=== PATIENT | male | born 1970 | race Asian ===

== ENCOUNTER 2016-07-25 09:52 | Inpatient (IN) | payer MEDICAID, OTHER ==
[~2016-07-25] VITALS: Ht 165.1 cm; Wt 75.3 kg
[~2016-07-25 09:52] MED LIST: DIVA500T35 PO; OLAN10TA3 PO
[2016-07-25 10:15] LABS: BASOPHILS % (AUTO) 0.5 % (0.0-2.0); EOSINOPHILS % (AUTO) 2.1 % (1.0-6.0); HEMOGLOBIN 15.6 g/dL (13.5-17.5); LYMPHOCYTES # (AUTO) 1.3 K/uL (1.0-4.8); MEAN CORPUSCULAR HEMOGLOBIN 30.1 pg (26.0-34.0); MEAN CORPUSCULAR HGB CONC 32.5 G/dL (31.0-37.0); MEAN CORPUSCULAR VOLUME 93 fL (80-100); MONOCYTES # (AUTO) 0.3 K/uL (0.1-1.0); MONOCYTES % (AUTO) 4.6 % (2.0-9.0); NEUTROPHILS % (AUTO) 70.8 % (40.0-70.0); PLATELET COUNT (AUTO) 262 K/uL (150-450); RED BLOOD CELL COUNT(AUTO) 5.18 MIL/uL (4.50-5.90); RED CELL DISTRIBUTION WIDTH 12.7 % (11.5-14.5); WHITE BLOOD COUNT (AUTO) 5.7 K/uL (4.5-11.0)
[2016-07-25 10:42] LABS: ANION GAP 7 mmol/L (8-16); CARBON DIOXIDE 29 mmol/L (22-29); CHLORIDE 102 mmol/L (98-107); CREATININE 0.79 mg/dL (0.60-1.30); GLOMERULAR FILTR. RATE CALC > 60 mL/min (>60); POTASSIUM 3.7 mmol/L (3.5-5.1); SODIUM SERUM 138 mmol/L (136-145); UREA NITROGEN, BLOOD 7 mg/dL (7-18)
[2016-07-25 10:49] LABS: ALANINE AMINOTRANSFERASE 25 U/L (12-78); ALBUMIN 4.1 g/dL (3.4-5.0); ASPARTATE AMINOTRANSFERASE 16 U/L (15-37); BILIRUBIN,TOTAL 0.9 mg/dL (0.1-1.0); TOTAL PROTEIN, SERUM 8.2 g/dL (6.4-8.2)
[2016-07-25 11:06] LABS: VALPROIC ACID < 3 mcg/mL (50-100)
[2016-07-25 13:07] VITALS: BP 139/82
[2016-07-25] MEDS ORDERED: LORazepam 2 MG TABLET PO PRN (13:15)
[2016-07-25] MEDS ORDERED: ZOLPIDEM TARTRATE 10 MG TABLET PO PRN (13:15)
[2016-07-25 14:37] LABS: GLUCOSE,POINT OF CARE 104 MG/DL (70-110)
[2016-07-25 16:26] VITALS: BP 144/87
[2016-07-25] MEDS: HALOPERIDOL 5 MG TABLET PO PRN (21:04)
[2016-07-26 03:08] VITALS: BP 130/73
[2016-07-26 08:22] VITALS: BP 131/76
[2016-07-26] MEDS ORDERED: ONDANSETRON HCL 4 MG TABLET PO PRN (08:30)
[2016-07-26] MEDS ORDERED: ALBUTEROL SULFATE HFA 90 MCG/PUFF 8 GM INHALER IH PRN (08:30)
[2016-07-26] MEDS ORDERED: ACETAMINOPHEN 325 MG TABLET PO PRN (08:30)
[2016-07-26] MEDS ORDERED: BENZOCAINE/MENTHOL LOZENGE MM PRN (08:30)
[2016-07-26] MEDS ORDERED: IBUPROFEN 600 MG TABLET PO PRN (08:30)
[2016-07-26] MEDS ORDERED: PETROLATUM,WHITE 71 GM JELLY TP PRN (08:30)
[2016-07-26] MEDS ORDERED: LOPERAMIDE HCL 2 MG CAPSULE PO PRN (08:30)
[2016-07-26] MEDS ORDERED: CloNIDine HCL 0.1 MG TABLET PO PRN (08:30)
[2016-07-26] MEDS ORDERED: MAG HYDROX/AL HYDROX/SIMETH ES 30 ML SUSPENSION UDCUP PO PRN (08:30)
[2016-07-26] MEDS ORDERED: MAGNESIUM HYDROXIDE SUSPENSION 30 ML UDCUP PO PRN (08:30)
[2016-07-26] MEDS ORDERED: BACITRACIN 28.4 GM OINTMENT TP PRN (08:30)
[2016-07-26 09:50] LABS: CHOL/HDL RATIO 4.9 (4.2-7.3)
[2016-07-26 16:01] VITALS: BP 135/88
[2016-07-26] MEDS: DIVALPROEX SODIUM 500 MG DR TABLET PO SCH (20:48)
[2016-07-26] MEDS: OLANZapine 10 MG TABLET PO SCH (20:48)
[2016-07-26] MEDS: HALOPERIDOL 5 MG TABLET PO PRN (20:49)
[2016-07-27 07:39] VITALS: BP 128/75
[2016-07-27 08:03] VITALS: BP 129/83
[2016-07-27 16:00] VITALS: BP 132/76
[2016-07-27] MEDS: HALOPERIDOL 5 MG TABLET PO PRN (17:14)
[2016-07-27] MEDS: OLANZapine 10 MG TABLET PO SCH (21:00)
[2016-07-27] MEDS: DIVALPROEX SODIUM 500 MG DR TABLET PO SCH (21:00)
[2016-07-28 03:36] VITALS: BP 106/68
[2016-07-28 16:13] VITALS: BP 132/80
[2016-07-28] MEDS: OLANZapine 10 MG TABLET PO SCH (21:00)
[2016-07-28] MEDS: DIVALPROEX SODIUM 500 MG DR TABLET PO SCH (21:00)
[2016-07-29 16:32] VITALS: BP 120/83
[2016-07-29] MEDS: OLANZapine 10 MG TABLET PO SCH (21:00)
[2016-07-29] MEDS: DIVALPROEX SODIUM 500 MG DR TABLET PO SCH (21:00)
[2016-07-30 03:20] VITALS: BP 100/65
[2016-07-30 16:02] VITALS: BP 131/88
[2016-07-30] MEDS ORDERED: HALO5 PO (19:51)
== END 2016-07-30 20:55 | disposition home or self-care (01) | DRG 750 ==
LOC: EMS 09:54 → B2S 11:29
PROVIDERS: ADMIT Psychiatry & Neurology Psychiatry; ATTEND Psychiatry & Neurology Psychiatry
DX: F25.9 Schizoaffective disorder, unspecified (principal); R45.851 Suicidal ideations; I10 Essential (primary) hypertension; F17.210 Nicotine dependence, cigarettes, uncomplicated; Z72.89 Other problems related to lifestyle; Z71.41 Alcohol abuse counseling and surveillance of alcoholic; Z88.0 Allergy status to penicillin; Z79.899 Other long term (current) drug therapy; Z71.6 Tobacco abuse counseling
CPT/HCPCS: 82962; 99285; G0480

== ENCOUNTER 2020-01-21 14:02 | Emergency (ER) | payer MEDICAID, OTHER ==
[~2020-01-21] VITALS: Ht 160 cm; Wt 74.9 kg
[~2020-01-21 14:02] MED LIST changes: +DIVA-112 PO; -DIVA500T35 PO
[2020-01-21 15:44] LABS: BASOPHILS % (AUTO) 0.6 % (0.0-2.0); EOSINOPHILS % (AUTO) 0.7 % (1.0-6.0); HEMATOCRIT 39.9 % (41-53); HEMOGLOBIN 13.8 g/dL (13.5-17.5); LYMPHOCYTES # (AUTO) 1.1 K/uL (1.0-4.8); LYMPHOCYTES % (AUTO) 16.9 % (22.0-44.0); MEAN CORPUSCULAR HEMOGLOBIN 31.9 pg (26.0-34.0); MEAN CORPUSCULAR HGB CONC 34.5 G/dL (31.0-37.0); MEAN CORPUSCULAR VOLUME 93 fL (80-100); MONOCYTES # (AUTO) 0.4 K/uL (0.1-1.0); MONOCYTES % (AUTO) 5.2 % (2.0-9.0); NEUTROPHILS # (AUTO) 5.2 K/uL (1.8-7.7); NEUTROPHILS % (AUTO) 76.6 % (40.0-70.0); PLATELET COUNT (AUTO) 271 K/uL (150-450); RED BLOOD CELL COUNT(AUTO) 4.31 MIL/uL (4.50-5.90); RED CELL DISTRIBUTION WIDTH 12.9 % (11.5-14.5)
[2020-01-21 15:57] LABS: ANION GAP 10 mmol/L (8-16); CALCIUM, TOTAL 9.4 mg/dL (8.8-10.5); CARBON DIOXIDE 26 mmol/L (22-29); CHLORIDE 101 mmol/L (98-107); CREATININE 0.83 mg/dL (0.60-1.30); GLOMERULAR FILTR. RATE CALC > 60 mL/min (>60); GLUCOSE,RANDOM 89 mg/dL (70-110); POTASSIUM 3.6 mmol/L (3.5-5.1); SODIUM SERUM 137 mmol/L (136-145); UREA NITROGEN, BLOOD 9 mg/dL (7-18)
[2020-01-21 16:18] LABS: ALANINE AMINOTRANSFERASE 30 U/L (12-78); ALBUMIN 4.3 g/dL (3.4-5.0); ALKALINE PHOSPHATASE 51 U/L (46-116); ASPARTATE AMINOTRANSFERASE 17 U/L (15-37); BILIRUBIN,TOTAL 0.9 mg/dL (0.1-1.0); TOTAL PROTEIN, SERUM 8.5 g/dL (6.4-8.2)
[2020-01-21 17:06] LABS: COVID AG,FIA SOURCE NASOPHARYNGEAL
[2020-01-21] MEDS ORDERED: OLANZapine 5 MG TABLET PO ONE (17:30)
[2020-01-21 20:16] VITALS: BP 140/80
== END 2020-01-21 20:17 | disposition home or self-care (01) ==
LOC: EMS 14:09
DX: F20.9 Schizophrenia, unspecified (principal); I11.9 Hypertensive heart disease without heart failure; F17.210 Nicotine dependence, cigarettes, uncomplicated; Z20.828 Contact with and (suspected) exposure to other viral communicable diseases; Z88.0 Allergy status to penicillin
CPT/HCPCS: 36415; 80053; 85025; 87426; 99285; G0480

== ENCOUNTER 2020-06-18 15:43 | Emergency (ER) | payer OTHER ==
[~2020-06-18] VITALS: Ht 167.6 cm; Wt 81.8 kg
[2020-06-18] MEDS ORDERED: ACETAMINOPHEN 325 MG TABLET PO ONE (16:45)
[2020-06-18 17:06] LABS: BASOPHILS % (AUTO) 0.7 % (0.0-2.0); EOSINOPHILS % (AUTO) 1.3 % (1.0-6.0); HEMATOCRIT 42.6 % (41-53); HEMOGLOBIN 14.4 g/dL (13.5-17.5); LYMPHOCYTES # (AUTO) 1.5 K/uL (1.0-4.8); MEAN CORPUSCULAR HEMOGLOBIN 29.7 pg (26.0-34.0); MEAN CORPUSCULAR HGB CONC 33.8 G/dL (31.0-37.0); MEAN CORPUSCULAR VOLUME 88 fL (80-100); MONOCYTES # (AUTO) 0.5 K/uL (0.1-1.0); MONOCYTES % (AUTO) 5.4 % (2.0-9.0); NEUTROPHILS # (AUTO) 6.3 K/uL (1.8-7.7); NEUTROPHILS % (AUTO) 74.6 % (40.0-70.0); PLATELET COUNT (AUTO) 304 K/uL (150-450); RED BLOOD CELL COUNT(AUTO) 4.83 MIL/uL (4.50-5.90); RED CELL DISTRIBUTION WIDTH 12.7 % (11.5-14.5)
[2020-06-18 17:25] LABS: ANION GAP 14 mmol/L (8-16); CALCIUM, TOTAL 9.1 mg/dL (8.8-10.5); CARBON DIOXIDE 25 mmol/L (22-29); CHLORIDE 103 mmol/L (98-107); GLOMERULAR FILTR. RATE CALC > 60 mL/min (>60); GLUCOSE,RANDOM 112 mg/dL (70-110); POTASSIUM 3.7 mmol/L (3.5-5.1); SODIUM SERUM 142 mmol/L (136-145); UREA NITROGEN, BLOOD 12 mg/dL (7-18)
[2020-06-18 17:30] LABS: ALANINE AMINOTRANSFERASE 20 U/L (12-78); ALBUMIN 4.1 g/dL (3.4-5.0); ALKALINE PHOSPHATASE 65 U/L (46-116); ASPARTATE AMINOTRANSFERASE 14 U/L (15-37); BILIRUBIN,TOTAL 0.6 mg/dL (0.1-1.0); TOTAL PROTEIN, SERUM 8.2 g/dL (6.4-8.2)
[2020-06-18] MEDS ORDERED: OLANZapine 5 MG TABLET PO ONE (21:15)
[2020-06-18] MEDS ORDERED: LORazepam 1 MG TABLET PO ONE (21:15)
[2020-06-18 21:30] VITALS: BP 125/75
== END 2020-06-18 21:45 | disposition home or self-care (01) ==
LOC: EMS 15:46
DX: R51.9 Headache, unspecified (principal); F25.9 Schizoaffective disorder, unspecified; I11.9 Hypertensive heart disease without heart failure; F17.210 Nicotine dependence, cigarettes, uncomplicated; Z88.0 Allergy status to penicillin
CPT/HCPCS: 80053; 80164; 85025; 99284; G0480

== ENCOUNTER 2020-06-29 11:06 | Inpatient (IN) | payer MEDICAID, OTHER ==
[~2020-06-29] VITALS: Ht 167.6 cm; Wt 76.7 kg
[2020-06-29 12:55] LABS: BASOPHILS % (AUTO) 0.7 % (0.0-2.0); EOSINOPHILS % (AUTO) 1.1 % (1.0-6.0); HEMATOCRIT 43.5 % (41-53); HEMOGLOBIN 14.7 g/dL (13.5-17.5); LYMPHOCYTES # (AUTO) 1.4 K/uL (1.0-4.8); MEAN CORPUSCULAR HEMOGLOBIN 30.1 pg (26.0-34.0); MEAN CORPUSCULAR HGB CONC 33.8 G/dL (31.0-37.0); MEAN CORPUSCULAR VOLUME 89 fL (80-100); MONOCYTES # (AUTO) 0.4 K/uL (0.1-1.0); MONOCYTES % (AUTO) 5.5 % (2.0-9.0); NEUTROPHILS # (AUTO) 5.9 K/uL (1.8-7.7); NEUTROPHILS % (AUTO) 74.7 % (40.0-70.0); PLATELET COUNT (AUTO) 281 K/uL (150-450); RED BLOOD CELL COUNT(AUTO) 4.89 MIL/uL (4.50-5.90); RED CELL DISTRIBUTION WIDTH 13.2 % (11.5-14.5)
[2020-06-29 13:07] LABS: ANION GAP 10 mmol/L (8-16); CALCIUM, TOTAL 9.3 mg/dL (8.8-10.5); CARBON DIOXIDE 27 mmol/L (22-29); CHLORIDE 103 mmol/L (98-107); CREATININE 0.83 mg/dL (0.60-1.30); GLOMERULAR FILTR. RATE CALC > 60 mL/min (>60); GLUCOSE,RANDOM 91 mg/dL (70-110); POTASSIUM 3.9 mmol/L (3.5-5.1); SODIUM SERUM 140 mmol/L (136-145); UREA NITROGEN, BLOOD 10 mg/dL (7-18)
[2020-06-29 13:15] LABS: ALANINE AMINOTRANSFERASE 24 U/L (12-78); ALBUMIN 4.2 g/dL (3.4-5.0); ALKALINE PHOSPHATASE 66 U/L (46-116); ASPARTATE AMINOTRANSFERASE 13 U/L (15-37); BILIRUBIN,TOTAL 0.8 mg/dL (0.1-1.0); TOTAL PROTEIN, SERUM 8.3 g/dL (6.4-8.2)
[2020-06-29 13:27] LABS: VALPROIC ACID < 3 mcg/mL (50-100)
[2020-06-29 15:58] LABS: COVID AG,FIA SOURCE NASOPHARYNGEAL
[2020-06-29] MEDS ORDERED: PNEUMOCOCCAL VACCINE POLYVALENT 0.5 ML VIAL [PPSV23] IM. ONE (19:30)
[2020-06-29 20:13] VITALS: BP 134/82
[2020-06-29] MEDS: LORazepam 2 MG TABLET PO PRN (21:54)
[2020-06-30 00:04] VITALS: BP 116/65
[2020-06-30 08:10] VITALS: BP 126/74
[2020-06-30] MEDS: CITALOPRAM HYDROBROMIDE 20 MG TABLET PO SCH (08:20)
[2020-06-30] MEDS ORDERED: LOPERAMIDE HCL 2 MG CAPSULE PO PRN (09:45)
[2020-06-30] MEDS ORDERED: MAGNESIUM HYDROXIDE SUSPENSION 30 ML UDCUP PO PRN (09:45)
[2020-06-30] MEDS ORDERED: ONDANSETRON HCL 4 MG TABLET PO PRN (09:45)
[2020-06-30] MEDS ORDERED: DOCUSATE SODIUM 100 MG CAPSULE PO PRN (09:45)
[2020-06-30] MEDS ORDERED: MAG HYDROX/AL HYDROX/SIMETH ES 30 ML SUSPENSION UDCUP PO PRN (09:45)
[2020-06-30] MEDS ORDERED: PETROLATUM,WHITE 28 GM JELLY TP PRN (09:45)
[2020-06-30] MEDS ORDERED: ALBUTEROL SULFATE HFA 90 MCG/PUFF 8 GM INHALER IH PRN (09:45)
[2020-06-30] MEDS ORDERED: BACITRACIN 28 GM OINTMENT TP PRN (09:45)
[2020-06-30] MEDS ORDERED: CloNIDine HCL 0.1 MG TABLET PO PRN (09:45)
[2020-06-30] MEDS ORDERED: OMEPRAZOLE 20 MG CAPSULE PO PRN (09:45)
[2020-06-30] MEDS ORDERED: IBUPROFEN 600 MG TABLET PO PRN (09:45)
[2020-06-30] MEDS ORDERED: BENZOCAINE/MENTHOL LOZENGE PO PRN (09:45)
[2020-06-30 16:31] VITALS: BP 116/69
[2020-06-30] MEDS: OLANZapine 10 MG TABLET PO SCH (20:33)
[2020-07-01] VITALS: BP 117/71
[2020-07-01 08:10] VITALS: BP 132/80
[2020-07-01] MEDS: CITALOPRAM HYDROBROMIDE 20 MG TABLET PO SCH (09:02)
[2020-07-01 16:26] VITALS: BP 131/77
[2020-07-01] MEDS: LORazepam 2 MG TABLET PO PRN (16:32)
[2020-07-01] MEDS: OLANZapine 10 MG TABLET PO SCH (20:29)
[2020-07-01] MEDS: ZOLPIDEM TARTRATE 10 MG TABLET PO PRN (22:54)
[2020-07-01 23:58] VITALS: BP 122/60
[2020-07-02 06:38] VITALS: BP 124/77
[2020-07-02 08:24] VITALS: BP 130/85
[2020-07-02] MEDS: CITALOPRAM HYDROBROMIDE 20 MG TABLET PO SCH (08:28)
[2020-07-02 16:07] VITALS: BP 118/79
[2020-07-02] MEDS: ACETAMINOPHEN 325 MG TABLET PO PRN (16:15)
[2020-07-02] MEDS: OLANZapine 10 MG TABLET PO SCH (20:30)
[2020-07-03 00:54] VITALS: BP 114/75
[2020-07-03] MEDS: CITALOPRAM HYDROBROMIDE 20 MG TABLET PO SCH (08:29)
[2020-07-03 08:42] VITALS: BP 118/71
[2020-07-03 16:12] VITALS: BP 139/81
[2020-07-03] MEDS: ACETAMINOPHEN 325 MG TABLET PO PRN (17:52)
[2020-07-03] MEDS: OLANZapine 10 MG TABLET PO SCH (21:41)
[2020-07-04 06:19] VITALS: BP 104/62
[2020-07-04 07:02] LABS: COVID AG,FIA SOURCE NASOPHARYNGEAL
[2020-07-04 08:18] VITALS: BP 135/79
[2020-07-04] MEDS: CITALOPRAM HYDROBROMIDE 20 MG TABLET PO SCH (08:38)
[2020-07-04] MEDS: LORazepam 2 MG TABLET PO PRN (09:13)
[2020-07-04 16:11] VITALS: BP 130/80
[2020-07-04] MEDS: OLANZapine 10 MG TABLET PO SCH (20:40)
[2020-07-05 00:28] VITALS: BP 139/77
[2020-07-05] MEDS: CITALOPRAM HYDROBROMIDE 20 MG TABLET PO SCH (08:15)
[2020-07-05 08:42] VITALS: BP 125/76
[2020-07-05 16:12] VITALS: BP 118/69
[2020-07-05] MEDS: OLANZapine 10 MG TABLET PO SCH (20:56)
[2020-07-06 00:44] VITALS: BP 113/78
[2020-07-06 08:04] VITALS: BP 134/83
[2020-07-06] MEDS: CITALOPRAM HYDROBROMIDE 20 MG TABLET PO SCH (08:29)
[2020-07-06] MEDS: MULTIVITAMINS WITH MINERALS, THERAPEUTIC TABLET PO SCH (12:20)
[2020-07-06 16:09] VITALS: BP 128/77
[2020-07-06] MEDS: ACETAMINOPHEN 325 MG TABLET PO PRN (18:15)
[2020-07-06] MEDS: OLANZapine 10 MG TABLET PO SCH (20:20)
[2020-07-07 00:03] VITALS: BP 122/81
[2020-07-07 08:07] VITALS: BP 124/79
[2020-07-07] MEDS: CITALOPRAM HYDROBROMIDE 20 MG TABLET PO SCH (08:49)
[2020-07-07] MEDS: MULTIVITAMINS WITH MINERALS, THERAPEUTIC TABLET PO SCH (08:49)
[2020-07-07 16:13] VITALS: BP 131/63
[2020-07-07] MEDS: OLANZapine 10 MG TABLET PO SCH (20:07)
[2020-07-08 04:54] VITALS: BP 119/74
[2020-07-08 08:25] VITALS: BP 122/65
[2020-07-08] MEDS: CITALOPRAM HYDROBROMIDE 20 MG TABLET PO SCH (08:48)
[2020-07-08] MEDS: MULTIVITAMINS WITH MINERALS, THERAPEUTIC TABLET PO SCH (08:48)
[2020-07-08 16:08] VITALS: BP 115/56
[2020-07-08] MEDS: OLANZapine 10 MG TABLET PO SCH (20:19)
[2020-07-09 05:34] VITALS: BP 110/64
[2020-07-09 08:00] VITALS: BP 146/74
[2020-07-09] MEDS: CITALOPRAM HYDROBROMIDE 20 MG TABLET PO SCH (08:04)
[2020-07-09] MEDS: MULTIVITAMINS WITH MINERALS, THERAPEUTIC TABLET PO SCH (08:04)
[2020-07-09 16:14] VITALS: BP 144/92
[2020-07-09 19:12] VITALS: BP 135/86
[2020-07-09] MEDS: OLANZapine 10 MG TABLET PO SCH (19:58)
[2020-07-10 05:28] VITALS: BP 117/69
[2020-07-10 08:00] VITALS: BP 147/84
[2020-07-10] MEDS: CITALOPRAM HYDROBROMIDE 20 MG TABLET PO SCH (09:03)
[2020-07-10] MEDS: MULTIVITAMINS WITH MINERALS, THERAPEUTIC TABLET PO SCH (09:03)
[2020-07-10 16:14] VITALS: BP 128/83
[2020-07-10] MEDS: OLANZapine 10 MG TABLET PO SCH (20:12)
[2020-07-11 06:20] VITALS: BP 114/69
[2020-07-11 07:19] LABS: COVID AG,FIA SOURCE NASOPHARYNGEAL
[2020-07-11 08:14] VITALS: BP 125/76
[2020-07-11] MEDS: MULTIVITAMINS WITH MINERALS, THERAPEUTIC TABLET PO SCH (08:59)
[2020-07-11] MEDS: CITALOPRAM HYDROBROMIDE 20 MG TABLET PO SCH (08:59)
[2020-07-11 16:04] VITALS: BP 139/81
[2020-07-11] MEDS: OLANZapine 10 MG TABLET PO SCH (20:10)
[2020-07-11] MEDS: ZOLPIDEM TARTRATE 10 MG TABLET PO PRN (23:03)
[2020-07-12 06:21] VITALS: BP 110/74
[2020-07-12 08:37] VITALS: BP 136/70
[2020-07-12] MEDS: CITALOPRAM HYDROBROMIDE 20 MG TABLET PO SCH (08:43)
[2020-07-12] MEDS: MULTIVITAMINS WITH MINERALS, THERAPEUTIC TABLET PO SCH (08:43)
[2020-07-12] MEDS: HALOPERIDOL 5 MG TABLET PO PRN (10:26)
[2020-07-12] MEDS: LORazepam 2 MG TABLET PO PRN ×2 (10:27→15:33)
[2020-07-12 16:13] VITALS: BP 145/74
[2020-07-12] MEDS: OLANZapine 10 MG TABLET PO SCH (20:41)
[2020-07-13 06:19] VITALS: BP 114/72
[2020-07-13] MEDS: MULTIVITAMINS WITH MINERALS, THERAPEUTIC TABLET PO SCH (08:33)
[2020-07-13] MEDS: CITALOPRAM HYDROBROMIDE 20 MG TABLET PO SCH (08:33)
[2020-07-13 08:44] VITALS: BP 114/75
[2020-07-13 16:14] VITALS: BP 127/98
[2020-07-13] MEDS: OLANZapine 10 MG TABLET PO SCH (20:00)
[2020-07-14 00:50] VITALS: BP 119/82
[2020-07-14 08:44] VITALS: BP 129/82
[2020-07-14] MEDS: MULTIVITAMINS WITH MINERALS, THERAPEUTIC TABLET PO SCH (08:54)
[2020-07-14] MEDS: CITALOPRAM HYDROBROMIDE 20 MG TABLET PO SCH (08:54)
[2020-07-14 16:22] VITALS: BP 143/90
[2020-07-14] MEDS: OLANZapine 10 MG TABLET PO SCH (20:44)
[2020-07-15 01:09] VITALS: BP 141/85
[2020-07-15 08:12] VITALS: BP 137/84
[2020-07-15] MEDS: CITALOPRAM HYDROBROMIDE 20 MG TABLET PO SCH (09:00)
[2020-07-15] MEDS: MULTIVITAMINS WITH MINERALS, THERAPEUTIC TABLET PO SCH (09:01)
[2020-07-15 16:08] VITALS: BP 134/79
[2020-07-15] MEDS: OLANZapine 10 MG TABLET PO SCH (20:27)
[2020-07-16 06:00] VITALS: BP 114/73
[2020-07-16 07:56] LABS: COVID AG,FIA SOURCE NASOPHARYNGEAL
[2020-07-16] MEDS: CITALOPRAM HYDROBROMIDE 20 MG TABLET PO SCH (08:32)
[2020-07-16] MEDS: MULTIVITAMINS WITH MINERALS, THERAPEUTIC TABLET PO SCH (08:32)
[2020-07-16 08:53] VITALS: BP 125/70
[2020-07-16 16:16] VITALS: BP 119/73
[2020-07-16] MEDS: OLANZapine 10 MG TABLET PO SCH (20:14)
[2020-07-17 00:25] VITALS: BP 129/80
[2020-07-17 08:58] VITALS: BP 133/79
[2020-07-17] MEDS: MULTIVITAMINS WITH MINERALS, THERAPEUTIC TABLET PO SCH (08:59)
[2020-07-17] MEDS: CITALOPRAM HYDROBROMIDE 20 MG TABLET PO SCH (09:00)
[2020-07-17 16:18] VITALS: BP 137/85
[2020-07-17] MEDS: OLANZapine 10 MG TABLET PO SCH (21:47)
[2020-07-18 00:23] VITALS: BP 102/63
[2020-07-18 08:17] VITALS: BP 133/82
[2020-07-18] MEDS: MULTIVITAMINS WITH MINERALS, THERAPEUTIC TABLET PO SCH (08:20)
[2020-07-18] MEDS: CITALOPRAM HYDROBROMIDE 20 MG TABLET PO SCH (08:20)
[2020-07-18 16:24] VITALS: BP 135/80
[2020-07-18] MEDS: OLANZapine 10 MG TABLET PO SCH (20:06)
[2020-07-19 06:42] VITALS: BP_SYST 122; BP_SYST 148; BP_DIAS 107; BP_DIAS 77
[2020-07-19 08:10] VITALS: BP 138/85
[2020-07-19] MEDS: CITALOPRAM HYDROBROMIDE 20 MG TABLET PO SCH (08:15)
[2020-07-19] MEDS: HALOPERIDOL 5 MG TABLET PO PRN ×2 (08:15→12:51)
[2020-07-19] MEDS: MULTIVITAMINS WITH MINERALS, THERAPEUTIC TABLET PO SCH (08:15)
[2020-07-19 16:16] VITALS: BP 125/87
[2020-07-19] MEDS: OLANZapine 10 MG TABLET PO SCH (19:56)
[2020-07-20 00:40] VITALS: BP 104/62
[2020-07-20] MEDS: CITALOPRAM HYDROBROMIDE 20 MG TABLET PO SCH (08:00)
[2020-07-20] MEDS: MULTIVITAMINS WITH MINERALS, THERAPEUTIC TABLET PO SCH (08:00)
[2020-07-20 08:08] VITALS: BP 128/95
[2020-07-20] MEDS ORDERED: OLAN10TA3 PO (14:39)
[2020-07-20] MEDS ORDERED: CITA-144 PO (14:39)
[2020-07-20 16:15] VITALS: BP 139/75
== END 2020-07-20 21:16 | disposition home or self-care (01) | DRG 750 ==
LOC: EMS 11:06 → B2S 16:48
PROVIDERS: ADMIT Psychiatry & Neurology Psychiatry; ATTEND Psychiatry & Neurology Psychiatry
DX: F25.9 Schizoaffective disorder, unspecified (principal); E11.9 Type 2 diabetes mellitus without complications; R45.851 Suicidal ideations; E78.5 Hyperlipidemia, unspecified; F41.9 Anxiety disorder, unspecified; G47.00 Insomnia, unspecified; I10 Essential (primary) hypertension; K59.00 Constipation, unspecified; Z20.822 Contact with and (suspected) exposure to COVID-19; K21.9 Gastro-esophageal reflux disease without esophagitis
CPT/HCPCS: 80053; 80164; 85025; 87426; 99285; G0480

== ENCOUNTER 2020-10-13 12:26 | Inpatient (IN) | payer MEDICAID, OTHER ==
[~2020-10-13] VITALS: Ht 170.2 cm; Wt 76.7 kg
[~2020-10-13 12:26] MED LIST changes: +CITA-144 PO; -DIVA-112 PO; -OLAN10TA3 PO; +OLAN10TA74 PO
[2020-10-13 16:22] LABS: BASOPHILS % (AUTO) 0.5 % (0.0-2.0); EOSINOPHILS % (AUTO) 1.6 % (1.0-6.0); HEMATOCRIT 47.2 % (41-53); HEMOGLOBIN 15.7 g/dL (13.5-17.5); LYMPHOCYTES # (AUTO) 1.7 K/uL (1.0-4.8); LYMPHOCYTES % (AUTO) 19.7 % (22.0-44.0); MEAN CORPUSCULAR HEMOGLOBIN 29.9 pg (26.0-34.0); MEAN CORPUSCULAR HGB CONC 33.4 G/dL (31.0-37.0); MEAN CORPUSCULAR VOLUME 90 fL (80-100); MONOCYTES # (AUTO) 0.5 K/uL (0.1-1.0); MONOCYTES % (AUTO) 5.6 % (2.0-9.0); NEUTROPHILS # (AUTO) 6.2 K/uL (1.8-7.7); NEUTROPHILS % (AUTO) 72.6 % (40.0-70.0); PLATELET COUNT (AUTO) 328 K/uL (150-450); RED BLOOD CELL COUNT(AUTO) 5.27 MIL/uL (4.50-5.90); RED CELL DISTRIBUTION WIDTH 12.8 % (11.5-14.5)
[2020-10-13] MEDS ORDERED: HALOPERIDOL 5 MG TABLET PO ONE (16:30)
[2020-10-13] MEDS ORDERED: LORazepam 2 MG TABLET PO ONE (16:30)
[2020-10-13 16:40] LABS: ANION GAP 13 mmol/L (8-16); CALCIUM, TOTAL 9.6 mg/dL (8.8-10.5); CARBON DIOXIDE 25 mmol/L (22-29); CHLORIDE 105 mmol/L (98-107); CREATININE 0.76 mg/dL (0.60-1.30); GLOMERULAR FILTR. RATE CALC > 60 mL/min (>60); GLUCOSE,RANDOM 93 mg/dL (70-110); POTASSIUM 3.3 mmol/L (3.5-5.1); SODIUM SERUM 143 mmol/L (136-145); UREA NITROGEN, BLOOD 9 mg/dL (7-18)
[2020-10-13 16:46] LABS: ALANINE AMINOTRANSFERASE 21 U/L (12-78); ALBUMIN 4.4 g/dL (3.4-5.0); ALKALINE PHOSPHATASE 71 U/L (46-116); ASPARTATE AMINOTRANSFERASE 15 U/L (15-37); BILIRUBIN,TOTAL 0.9 mg/dL (0.1-1.0); TOTAL PROTEIN, SERUM 8.6 g/dL (6.4-8.2)
[2020-10-13] MEDS ORDERED: POTASSIUM CHLORIDE 20 MEQ ER TABLET PO ONE (17:00)
[2020-10-13 18:14] LABS: COVID AG,FIA SOURCE NASOPHARYNGEAL
[2020-10-13] MEDS ORDERED: LORazepam 2 MG TABLET PO PRN (18:15)
[2020-10-13] MEDS ORDERED: ZOLPIDEM TARTRATE 10 MG TABLET PO PRN (18:15)
[2020-10-13 20:00] VITALS: BP 132/81
[2020-10-14] MEDS: OLANZapine 5 MG TABLET PO SCH ×2 (10:22→16:08)
[2020-10-14] MEDS ORDERED: DOCUSATE SODIUM 100 MG CAPSULE PO PRN (12:15)
[2020-10-14] MEDS ORDERED: PETROLATUM,WHITE 28 GM JELLY TP PRN (12:15)
[2020-10-14] MEDS ORDERED: ACETAMINOPHEN 325 MG TABLET PO PRN (12:15)
[2020-10-14] MEDS ORDERED: MAG HYDROX/AL HYDROX/SIMETH ES 30 ML SUSPENSION UDCUP PO PRN (12:15)
[2020-10-14] MEDS ORDERED: GuaiFENesin/D-METHORPHAN [SUGAR-FREE] 200-20MG/10 ML SYRUP UDCUP PO PRN (12:15)
[2020-10-14] MEDS ORDERED: NICOTINE 14 MG/24 HOUR PATCH TD PRN (12:15)
[2020-10-14] MEDS ORDERED: IBUPROFEN 400 MG TABLET PO PRN (12:15)
[2020-10-14] MEDS ORDERED: MAGNESIUM HYDROXIDE SUSPENSION 30 ML UDCUP PO PRN (12:15)
[2020-10-14] MEDS ORDERED: ONDANSETRON HCL 4 MG TABLET PO PRN (12:15)
[2020-10-14] MEDS ORDERED: LOPERAMIDE HCL 2 MG CAPSULE PO PRN (12:15)
[2020-10-14] MEDS ORDERED: ALBUTEROL SULFATE HFA 90 MCG/PUFF 8 GM INHALER IH PRN (12:15)
[2020-10-14] MEDS ORDERED: CloNIDine HCL 0.1 MG TABLET PO PRN (12:15)
[2020-10-14 16:02] VITALS: BP 131/87
[2020-10-15 08:00] VITALS: BP 124/85
[2020-10-15] MEDS: OLANZapine 5 MG TABLET PO SCH ×2 (10:16→17:23)
[2020-10-15 16:52] VITALS: BP 145/89
[2020-10-16 03:00] VITALS: BP 139/86
[2020-10-16 06:03] LABS: GLUCOMETER DEV NAME(LOC) 3E.I 2; GLUCOSE,POINT OF CARE 98 MG/DL (70-110)
[2020-10-16] MEDS: CITALOPRAM HYDROBROMIDE 20 MG TABLET PO SCH (08:24)
[2020-10-16] MEDS: OLANZapine 5 MG TABLET PO SCH ×2 (08:24→17:09)
[2020-10-16 09:02] VITALS: BP 134/92
[2020-10-16 16:30] VITALS: BP 122/74
[2020-10-17 03:46] VITALS: BP 110/75
[2020-10-17 08:00] VITALS: BP 145/89
[2020-10-17] MEDS: OLANZapine 5 MG TABLET PO SCH ×2 (08:44→16:29)
[2020-10-17] MEDS: CITALOPRAM HYDROBROMIDE 20 MG TABLET PO SCH (08:44)
[2020-10-17 17:10] VITALS: BP 138/81
[2020-10-18 08:00] VITALS: BP 139/83
[2020-10-18] MEDS: OLANZapine 5 MG TABLET PO SCH ×2 (08:27→16:20)
[2020-10-18] MEDS: CITALOPRAM HYDROBROMIDE 20 MG TABLET PO SCH (08:27)
[2020-10-18 16:07] VITALS: BP 149/80
[2020-10-19 02:12] VITALS: BP_SYST 111; BP_SYST 130; BP_DIAS 88; BP_DIAS 97
[2020-10-19] MEDS: OLANZapine 5 MG TABLET PO SCH ×2 (07:54→16:07)
[2020-10-19] MEDS: CITALOPRAM HYDROBROMIDE 20 MG TABLET PO SCH (07:54)
[2020-10-19 08:09] VITALS: BP 147/84
[2020-10-19 16:34] VITALS: BP 133/77
[2020-10-19 19:56] LABS: COVID AG,FIA SOURCE NASAL SWAB
[2020-10-20] VITALS: BP 132/79
[2020-10-20] MEDS: CITALOPRAM HYDROBROMIDE 20 MG TABLET PO SCH (08:40)
[2020-10-20] MEDS: OLANZapine 5 MG TABLET PO SCH ×2 (08:40→16:47)
[2020-10-20 08:58] VITALS: BP 139/81
[2020-10-20 16:12] VITALS: BP 125/80
[2020-10-21 03:03] VITALS: BP 110/74
[2020-10-21 08:23] VITALS: BP 142/87
[2020-10-21] MEDS: CITALOPRAM HYDROBROMIDE 20 MG TABLET PO SCH (08:59)
[2020-10-21] MEDS: OLANZapine 5 MG TABLET PO SCH ×2 (08:59→16:53)
[2020-10-21 16:36] VITALS: BP 139/85
[2020-10-22 00:59] VITALS: BP 130/84
[2020-10-22 08:00] VITALS: BP 137/82
[2020-10-22] MEDS: OLANZapine 5 MG TABLET PO SCH ×2 (09:59→16:18)
[2020-10-22] MEDS: CITALOPRAM HYDROBROMIDE 20 MG TABLET PO SCH (10:01)
[2020-10-22 16:57] VITALS: BP 149/93
[2020-10-22 17:32] VITALS: BP 137/87
[2020-10-23 06:21] VITALS: BP 108/70
[2020-10-23] MEDS: CITALOPRAM HYDROBROMIDE 20 MG TABLET PO SCH (09:00)
[2020-10-23] MEDS: OLANZapine 5 MG TABLET PO SCH ×2 (09:00→16:05)
[2020-10-23 16:34] VITALS: BP 141/90
[2020-10-24 08:44] VITALS: BP 144/83
[2020-10-24] MEDS: CITALOPRAM HYDROBROMIDE 20 MG TABLET PO SCH (09:03)
[2020-10-24] MEDS: OLANZapine 5 MG TABLET PO SCH ×2 (09:03→16:15)
[2020-10-24 19:00] VITALS: BP 137/82
[2020-10-25 08:15] VITALS: BP 131/81
[2020-10-25] MEDS: OLANZapine 5 MG TABLET PO SCH ×2 (08:39→17:31)
[2020-10-25] MEDS: CITALOPRAM HYDROBROMIDE 20 MG TABLET PO SCH (08:39)
[2020-10-25 19:40] VITALS: BP 141/88
[2020-10-26] MEDS: OLANZapine 5 MG TABLET PO SCH ×2 (08:06→17:43)
[2020-10-26] MEDS: CITALOPRAM HYDROBROMIDE 20 MG TABLET PO SCH (08:06)
[2020-10-26 09:32] VITALS: BP 139/87
[2020-10-26 16:14] VITALS: BP 104/64
[2020-10-27] MEDS: OLANZapine 5 MG TABLET PO SCH ×2 (08:23→17:58)
[2020-10-27] MEDS: CITALOPRAM HYDROBROMIDE 20 MG TABLET PO SCH (08:23)
[2020-10-27 09:33] VITALS: BP 137/82
[2020-10-27 16:10] VITALS: BP 139/83
[2020-10-28 08:35] VITALS: BP 113/68
[2020-10-28] MEDS: OLANZapine 5 MG TABLET PO SCH ×2 (10:06→16:58)
[2020-10-28] MEDS: CITALOPRAM HYDROBROMIDE 20 MG TABLET PO SCH (10:06)
[2020-10-28 16:23] VITALS: BP 123/76
[2020-10-28] MEDS: HALOPERIDOL 5 MG TABLET PO PRN (21:13)
[2020-10-28 21:51] LABS: COVID AG,FIA SOURCE NASAL SWAB
[2020-10-29 08:45] VITALS: BP 136/85
[2020-10-29] MEDS: CITALOPRAM HYDROBROMIDE 20 MG TABLET PO SCH (09:00)
[2020-10-29] MEDS: OLANZapine 5 MG TABLET PO SCH ×2 (09:04→16:23)
[2020-10-29 16:05] VITALS: BP 108/68
[2020-10-30 00:15] VITALS: BP 112/68
[2020-10-30 08:00] VITALS: BP 122/75
[2020-10-30] MEDS: OLANZapine 5 MG TABLET PO SCH ×2 (08:14→16:22)
[2020-10-30] MEDS: CITALOPRAM HYDROBROMIDE 20 MG TABLET PO SCH (08:14)
[2020-10-30 16:21] VITALS: BP 140/85
[2020-10-31 08:43] VITALS: BP 108/61
[2020-10-31] MEDS: OLANZapine 5 MG TABLET PO SCH ×2 (08:49→16:32)
[2020-10-31] MEDS: CITALOPRAM HYDROBROMIDE 20 MG TABLET PO SCH (08:49)
[2020-11-01] MEDS: OLANZapine 5 MG TABLET PO SCH ×2 (08:14→16:07)
[2020-11-01] MEDS: CITALOPRAM HYDROBROMIDE 20 MG TABLET PO SCH (08:15)
[2020-11-01 08:20] VITALS: BP 140/82
[2020-11-01 08:56] LABS: COVID AG,FIA SOURCE NASAL SWAB
[2020-11-01 16:48] VITALS: BP 130/81
[2020-11-02] MEDS: CITALOPRAM HYDROBROMIDE 20 MG TABLET PO SCH (08:08)
[2020-11-02] MEDS: OLANZapine 5 MG TABLET PO SCH ×2 (08:08→16:58)
[2020-11-02 08:46] VITALS: BP 118/80
[2020-11-02 16:00] VITALS: BP 121/79
[2020-11-02 17:45] VITALS: BP 121/87
[2020-11-03] MEDS: OLANZapine 5 MG TABLET PO SCH ×2 (08:22→16:18)
[2020-11-03] MEDS: CITALOPRAM HYDROBROMIDE 20 MG TABLET PO SCH (08:22)
[2020-11-03 08:57] VITALS: BP 116/79
[2020-11-03 16:25] VITALS: BP 137/86
[2020-11-04] MEDS: OLANZapine 5 MG TABLET PO SCH ×2 (08:18→16:23)
[2020-11-04] MEDS: CITALOPRAM HYDROBROMIDE 20 MG TABLET PO SCH (08:18)
[2020-11-04 08:39] VITALS: BP 129/73
[2020-11-04 17:18] VITALS: BP 136/85
[2020-11-05 08:51] VITALS: BP 104/75
[2020-11-05] MEDS: OLANZapine 5 MG TABLET PO SCH ×2 (09:02→16:14)
[2020-11-05] MEDS: CITALOPRAM HYDROBROMIDE 20 MG TABLET PO SCH (09:03)
[2020-11-05 16:22] VITALS: BP 118/95
[2020-11-06] MEDS: CITALOPRAM HYDROBROMIDE 20 MG TABLET PO SCH (08:17)
[2020-11-06] MEDS: OLANZapine 5 MG TABLET PO SCH ×2 (08:17→16:03)
[2020-11-06 08:18] VITALS: BP 110/88
[2020-11-06] MEDS: HALOPERIDOL 5 MG TABLET PO PRN (16:03)
[2020-11-06 16:29] VITALS: BP 143/83
[2020-11-07] MEDS: OLANZapine 5 MG TABLET PO SCH ×2 (08:11→16:06)
[2020-11-07] MEDS: CITALOPRAM HYDROBROMIDE 20 MG TABLET PO SCH (08:11)
[2020-11-07 08:40] VITALS: BP 135/69
[2020-11-07] MEDS: HALOPERIDOL 5 MG TABLET PO PRN (16:07)
[2020-11-07 16:19] VITALS: BP 131/79
[2020-11-08] MEDS: OLANZapine 5 MG TABLET PO SCH ×2 (08:11→16:58)
[2020-11-08] MEDS: CITALOPRAM HYDROBROMIDE 20 MG TABLET PO SCH (08:11)
[2020-11-08 08:53] VITALS: BP 117/66
[2020-11-08 10:22] LABS: COVID AG,FIA SOURCE NASAL SWAB
[2020-11-08 18:20] VITALS: BP 143/82
[2020-11-09] MEDS: CITALOPRAM HYDROBROMIDE 20 MG TABLET PO SCH (09:32)
[2020-11-09] MEDS: OLANZapine 5 MG TABLET PO SCH ×2 (09:32→16:39)
[2020-11-09 16:28] VITALS: BP 142/98
[2020-11-10 01:55] VITALS: BP 140/86
[2020-11-10 08:27] VITALS: BP 149/90
[2020-11-10] MEDS: CITALOPRAM HYDROBROMIDE 20 MG TABLET PO SCH (09:04)
[2020-11-10] MEDS: OLANZapine 5 MG TABLET PO SCH (09:04)
[2020-11-10] MEDS ORDERED: CITA-144 PO (12:00)
[2020-11-10] MEDS ORDERED: OLAN5TAB52 PO (12:00)
== END 2020-11-10 14:45 | disposition home or self-care (01) | DRG 750 ==
LOC: EMS 12:28 → 3EI 19:13 → 3EX 11-02 11:00 → UNDODISIN 11-07 12:05 → 3EX 11-08 14:40 → 3EI 11-08 15:57
PROVIDERS: ADMIT Psychiatry & Neurology Child & Adolescent Psychiatry; ATTEND Psychiatry & Neurology Child & Adolescent Psychiatry
DX: F20.0 Paranoid schizophrenia (principal); F33.2 Major depressive disorder, recurrent severe without psychotic features; R45.851 Suicidal ideations; I11.9 Hypertensive heart disease without heart failure; E11.9 Type 2 diabetes mellitus without complications; Z59.0 Homelessness; E87.6 Hypokalemia; F17.210 Nicotine dependence, cigarettes, uncomplicated; F41.9 Anxiety disorder, unspecified; R63.0 Anorexia; G44.209 Tension-type headache, unspecified, not intractable; Z20.822 Contact with and (suspected) exposure to COVID-19; Z76.5 Malingerer [conscious simulation]; Z91.14 Patient's other noncompliance with medication regimen; Z91.19 Patient's noncompliance with other medical treatment and regimen; Z79.84 Long term (current) use of oral hypoglycemic drugs; Z68.26 Body mass index [BMI] 26.0-26.9, adult; Z88.0 Allergy status to penicillin; Z79.899 Other long term (current) drug therapy
CPT/HCPCS: 80053; 82962; 84132; 85025; 99285; G0378; G0480

== ENCOUNTER 2022-06-23 11:12 | Inpatient (IN) | payer MEDICAID, OTHER ==
[~2022-06-23] VITALS: Ht 170.2 cm; Wt 81.2 kg
[~2022-06-23 11:12] MED LIST changes: -OLAN10TA74 PO; +OLAN5TAB52 PO
[2022-06-23] MEDS ORDERED: LORazepam 2 MG/ML VIAL ONE (12:14)
[2022-06-23] MEDS ORDERED: DiphenhydrAMINE HCL 50 MG/ML VIAL ONE (12:14)
[2022-06-23] MEDS ORDERED: HALOPERIDOL LACTATE 5 MG/ML VIAL ONE (12:14)
[2022-06-23] MEDS ORDERED: LORazepam 2 MG/ML VIAL IM ONE (12:15)
[2022-06-23] MEDS ORDERED: DiphenhydrAMINE HCL 50 MG/ML VIAL IM ONE (12:15)
[2022-06-23] MEDS ORDERED: HALOPERIDOL LACTATE 5 MG/ML VIAL IM ONE (12:15)
[2022-06-23 12:31] LABS: COVID AG,FIA SOURCE NASOPHARYNGEAL
[2022-06-23 13:50] LABS: BASOPHILS % (AUTO) 0.5 % (0.0-2.0); EOSINOPHILS % (AUTO) 0.2 % (1.0-6.0); HEMATOCRIT 45.7 % (41-53); HEMOGLOBIN 14.7 g/dL (13.5-17.5); LYMPHOCYTES # (AUTO) 1.4 K/uL (1.0-4.8); LYMPHOCYTES % (AUTO) 11.2 % (22.0-44.0); MEAN CORPUSCULAR HEMOGLOBIN 26.4 pg (26.0-34.0); MEAN CORPUSCULAR HGB CONC 32.2 G/dL (31.0-37.0); MEAN CORPUSCULAR VOLUME 82 fL (80-100); MONOCYTES # (AUTO) 1.1 K/uL (0.1-1.0); MONOCYTES % (AUTO) 8.8 % (2.0-9.0); NEUTROPHILS # (AUTO) 10.1 K/uL (1.8-7.7); NEUTROPHILS % (AUTO) 79.3 % (40.0-70.0); PLATELET COUNT (AUTO) 310 K/uL (150-450); RED BLOOD CELL COUNT(AUTO) 5.57 MIL/uL (4.50-5.90); RED CELL DISTRIBUTION WIDTH 22.3 % (11.5-14.5)
[2022-06-23 14:02] LABS: ANION GAP 12 mmol/L (8-16); CALCIUM, TOTAL 9.9 mg/dL (8.8-10.5); CARBON DIOXIDE 27 mmol/L (22-29); CHLORIDE 103 mmol/L (98-107); CREATININE 1.13 mg/dL (0.60-1.30); GLOMERULAR FILTR. RATE CALC > 60 mL/min (>60); GLUCOSE,RANDOM 77 mg/dL (70-110); POTASSIUM 3.8 mmol/L (3.5-5.1); SODIUM SERUM 142 mmol/L (136-145); UREA NITROGEN, BLOOD 26 mg/dL (7-18)
[2022-06-23 14:16] LABS: ALANINE AMINOTRANSFERASE 17 U/L (12-78); ALBUMIN 4.7 g/dL (3.4-5.0); ALKALINE PHOSPHATASE 81 U/L (46-116); ASPARTATE AMINOTRANSFERASE 43 U/L (15-37); BILIRUBIN,TOTAL 1.3 mg/dL (0.1-1.0); THYROID STIMULATING HORMONE 1.36 uIU/mL (0.36-3.74); TOTAL PROTEIN, SERUM 9.2 g/dL (6.4-8.2)
[2022-06-23] MEDS ORDERED: HALOPERIDOL 5 MG TABLET PO PRN (15:00)
[2022-06-23] MEDS: LORazepam 2 MG TABLET PO PRN (19:37)
[2022-06-23 20:20] VITALS: BP 135/85
[2022-06-23] MEDS: ZOLPIDEM TARTRATE 10 MG TABLET PO PRN (20:38)
[2022-06-24] MEDS ORDERED: IBUPROFEN 400 MG TABLET PO PRN
[2022-06-24] MEDS ORDERED: LOPERAMIDE HCL 2 MG CAPSULE PO PRN
[2022-06-24] MEDS ORDERED: MAGNESIUM HYDROXIDE SUSPENSION 30 ML UDCUP PO PRN
[2022-06-24] MEDS ORDERED: DOCUSATE SODIUM 100 MG CAPSULE PO PRN
[2022-06-24] MEDS ORDERED: GuaiFENesin/D-METHORPHAN [SUGAR-FREE] 200-20MG/10 ML SYRUP UDCUP PO PRN
[2022-06-24] MEDS ORDERED: ALBUTEROL SULFATE HFA 90 MCG/PUFF 8 GM INHALER IH PRN
[2022-06-24] MEDS ORDERED: MAG HYDROX/AL HYDROX/SIMETH ES 30 ML SUSPENSION UDCUP PO PRN
[2022-06-24] MEDS ORDERED: PETROLATUM,WHITE 28 GM JELLY TP PRN
[2022-06-24] MEDS ORDERED: NICOTINE 14 MG/24 HOUR PATCH TD PRN
[2022-06-24] MEDS ORDERED: CloNIDine HCL 0.1 MG TABLET PO PRN
[2022-06-24] MEDS ORDERED: ONDANSETRON HCL 4 MG TABLET PO PRN
[2022-06-24] MEDS ORDERED: ACETAMINOPHEN 325 MG TABLET PO PRN
[2022-06-24 08:07] VITALS: BP 111/69
[2022-06-24] MEDS: CITALOPRAM HYDROBROMIDE 20 MG TABLET PO SCH (10:04)
[2022-06-24] MEDS: OLANZapine 5 MG TABLET PO SCH ×2 (10:04→20:12)
[2022-06-24 16:20] VITALS: BP 115/68
[2022-06-24] MEDS: ZOLPIDEM TARTRATE 10 MG TABLET PO PRN (20:12)
[2022-06-24] MEDS: LORazepam 2 MG TABLET PO PRN (20:51)
[2022-06-24 21:54] VITALS: BP 137/64
[2022-06-25] MEDS: CITALOPRAM HYDROBROMIDE 20 MG TABLET PO SCH (08:33)
[2022-06-25] MEDS: OLANZapine 5 MG TABLET PO SCH ×2 (08:33→20:21)
[2022-06-25 16:02] VITALS: BP 149/97
[2022-06-25 20:27] VITALS: BP 130/76
[2022-06-26] MEDS: CITALOPRAM HYDROBROMIDE 20 MG TABLET PO SCH (08:10)
[2022-06-26] MEDS: OLANZapine 5 MG TABLET PO SCH ×2 (08:11→20:26)
[2022-06-26 08:30] VITALS: BP 134/84
[2022-06-26 16:24] VITALS: BP 139/78
[2022-06-26 20:00] VITALS: BP 172/95
[2022-06-26 20:23] VITALS: BP 172/95
[2022-06-26 21:26] VITALS: BP 151/97
[2022-06-27] MEDS: OLANZapine 5 MG TABLET PO SCH ×2 (08:39→20:46)
[2022-06-27] MEDS: CITALOPRAM HYDROBROMIDE 20 MG TABLET PO SCH (08:40)
[2022-06-27 08:58] VITALS: BP 137/83
[2022-06-27 16:08] VITALS: BP 160/84
[2022-06-28 08:07] VITALS: BP 143/89
[2022-06-28] MEDS: OLANZapine 5 MG TABLET PO SCH ×2 (08:53→20:40)
[2022-06-28] MEDS: CITALOPRAM HYDROBROMIDE 20 MG TABLET PO SCH (08:53)
[2022-06-28 16:20] VITALS: BP 153/90
[2022-06-29 08:25] VITALS: BP 153/92
[2022-06-29] MEDS: CITALOPRAM HYDROBROMIDE 20 MG TABLET PO SCH (08:31)
[2022-06-29] MEDS: OLANZapine 5 MG TABLET PO SCH (08:31)
[2022-06-29] MEDS ORDERED: CITA-144 PO (11:35)
[2022-06-29] MEDS ORDERED: OLAN5TAB52 PO (11:35)
== END 2022-06-29 16:45 | disposition home or self-care (01) | DRG 750 ==
LOC: EMS 11:12 → 3EC 17:20
PROVIDERS: ADMIT Psychiatry & Neurology Psychiatry; ATTEND Psychiatry & Neurology Psychiatry
DX: F20.0 Paranoid schizophrenia (principal); E11.9 Type 2 diabetes mellitus without complications; Z20.822 Contact with and (suspected) exposure to COVID-19; E78.5 Hyperlipidemia, unspecified; I11.9 Hypertensive heart disease without heart failure; F17.210 Nicotine dependence, cigarettes, uncomplicated; F32.A Depression, unspecified; D72.829 Elevated white blood cell count, unspecified; Z78.1 Physical restraint status; Z79.899 Other long term (current) drug therapy; Z91.51 Personal history of suicidal behavior; Z88.0 Allergy status to penicillin
CPT/HCPCS: 80053; 84443; 85025; 99291; G0480; J1200; J1630; J2060; J3535

== ENCOUNTER 2024-11-18 14:17 | Emergency (ER) | payer MEDICAID, OTHER ==
[~2024-11-18] VITALS: Ht 162.6 cm; Wt 72.7 kg
[~2024-11-18 14:17] MED LIST changes: -CITA-144 PO; +CLOZ100T61 PO; +CLOZ25TA52 PO; +DIVA125C20 PO; +LORA1TAB25 PO; +MELA5TAB40 PO; -OLAN5TAB52 PO; +PARO-37 PO
[2024-11-18 14:25] VITALS: BP 124/105; PULSE 77; RESP 18; TEMP 97.9; O2SAT 100
== END 2024-11-18 16:00 | disposition home or self-care (01) ==
LOC: EMS 14:17
DX: F17.210 Nicotine dependence, cigarettes, uncomplicated (principal); I11.9 Hypertensive heart disease without heart failure; F20.9 Schizophrenia, unspecified; Z79.899 Other long term (current) drug therapy; Z88.0 Allergy status to penicillin
CPT/HCPCS: 99282; Z7502